=== PATIENT | male | born 1955 | race Caucasian/White ===

== ENCOUNTER 2018-06-26 14:37 | Emergency (ER) | payer MEDICAID, MEDICARE ==
[2018-06-26 14:49] VITALS: BP 195/114; PULSE 61; RESP 19; TEMP 98.2; O2SAT 96
[2018-06-26] MEDS ORDERED: Acetaminophen-Codeine 300/30 mg Tab PO STA (15:47)
[2018-06-26] MEDS ORDERED: Acetaminophen-Codeine 300/30 mg Tab ONE ×2 (16:00→16:01)
--- NOTE | 2018-06-26 16:09 | ED PDOC ---
HPI: Dental Pain/Injury Time Seen by Provider: 06/26/18 14:57 Chief Complaint (Nursing): Dental Pain Chief Complaint (Provider): Dental Pain History Per: Patient History/Exam Limitations: no limitations Onset/Duration Of Symptoms: Days Current Symptoms Are (Timing): Still Present Additional Complaint(s): Patient is a 62 y/o male with a PMHx of HIV, HTN, atrial fibrillation, and depression who presents to the ED for evaluation of dental pain. Patient claims to have a broken tooth that he tried to pull out himself. Patient admits to smoking, stating he had three cigarettes today. PCP: None Provided Past Medical History Vital Signs: Last Vital Signs Temp 98.2 F 06/26/18 14:46 Pulse 61 06/26/18 14:46 Resp 19 06/26/18 14:46 BP 195/114 H 06/26/18 14:46 Pulse Ox 96 06/26/18 14:46 - Medical History PMH: Atrial Fibrillation, Depression, HIV, HTN Denies: Diabetes, Hepatitis, Chronic Kidney Disease, Seizures, Sexually Transmitted Disease - Surgical History Surgical History: No Surg Hx - Family History Family History: States: No Known Family Hx - Social History Current smoker - smoking cessation education provided: Yes - Immunization History Hx Tetanus Toxoid Vaccination: No Hx Influenza Vaccination: Yes Hx Pneumococcal Vaccination: Yes - Home Medications Home Medications: Ambulatory Orders Medication Instructions Recorded Abacavir Sulfate/Lamivudine 1 tab PO DAILY 05/29/14 [Epzicom] Cholecalciferol (Vitamin D3) 5,000 unit PO DAILY 05/29/14 [Vitamin D] Dolutegravir Sodium [Tivicay] 50 mg PO DAILY 05/29/14 Metoprolol Succinate XL [Toprol XL] 50 mg PO DAILY 05/29/14 Mirtazapine [Remeron] 30 mg PO BID 05/29/14 clonazePAM [Klonopin] 0.5 mg PO TID 05/29/14 Acetaminophen with Codeine 1 each PO Q6 #12 tablet 06/26/18 [Tylenol with Codeine #3 Tablet] Amoxicillin/Clavulanate [Augmentin 1 tab PO BID #20 tab 06/26/18 875 MG-125 MG] - Allergies Allergies/Adverse Reactions: Allergies Allergy/AdvReac Type Severity Reaction Status Date / Time No Known Allergies Allergy Unverified 03/31/13 18:00 Review of Systems ROS Statement: Except As Marked, All Systems Reviewed And Found Negative ENT: Positive for: Mouth Pain (Lower Right Set of Teeth). Negative for: Mouth Swelling Physical Exam - Reviewed Nursing Documentation Reviewed: Yes Vital Signs Reviewed: Yes - Physical Exam Appears: Positive for: No Acute Distress Head Exam: Positive for: ATRAUMATIC, NORMAL INSPECTION, NORMOCEPHALIC Skin: Positive for: Normal Color Eye Exam: Positive for: Normal appearance ENT: Positive for: Normal ENT Inspection (Tooth Fracture on #28; Tooth #29, 30, 31, 32 are missing). Negative for: Other (Abcess, Infection, Dscharge or Drainage) Neck: Positive for: Normal Cardiovascular/Chest: Positive for: Regular Rate, Rhythm Respiratory: Positive for: Normal Breath Sounds. Negative for: Decreased Breath Sounds, Respiratory Distress Gastrointestinal/Abdominal: Positive for: Normal Exam Extremity: Positive for: Normal ROM Neurologic/Psych: Positive for: Alert, Oriented - ECG O2 Sat by Pulse Oximetry: 96 (RA) Pulse Ox Interpretation: Normal Medical Decision Making Medical Decision Making: Time: 1547 Plan: [Tylenol/Codeine 300 MG/ 30 MG] 2 Tab PO Time: 1550 Patient refused upper alveolar injection. Will be given referral to dentist. Scribe Attestation: Documented by Pritesh Montoya, acting as a scribe for Elkin DEAL. Provider Scribe Attestation: All medical record entries made by the Scribe were at my direction and personally dictated by me. I have reviewed the chart and agree that the record accurately reflects my personal performance of the history, physical exam, medical decision making, and the department course for this patient. I have also personally directed, reviewed, and agree with the discharge instructions and disposition. Disposition - Clinical Impression Clinical Impression: Dental caries - Disposition Disposition: Routine/Home Disposition Time: 16:57 Condition: STABLE Additional Instructions: Pt is advised to follow up with his dentist, Shanita in [place] as soon as possible for dental releief Pt is stable for discharge and is in no further need of emergency medical treatment Pt will be discharged Prescriptions: Acetaminophen with Codeine [Tylenol with Codeine #3 Tablet] 1 each PO Q6 #12 tab let Amoxicillin/Clavulanate [Augmentin 875 MG-125 MG] 1 tab PO BID #20 tab Instructions: Dental Pain (DC), Dental Pain Forms: [employer] (Estonian)
== END 2018-06-26 16:24 | disposition home or self-care (01) ==
LOC: H.ER 14:37
DX: K02.9 Dental caries, unspecified (principal)